=== PATIENT | male | born 1980 | race Caucasian/White ===

== ENCOUNTER → 2018-01-13 | Outpatient (CLI) | payer OTHER ==
--- NOTE | 2018-01-13 23:05 | MR ---
EXAMINATION TYPE: MR lumbar spine wo con DATE OF EXAM: 01/13/2018 COMPARISON: NONE HISTORY: Back pain with severe shooting pain down both legs since 1999 per patient. Lumbago with righ t-sided sciatica per order. TECHNIQUE: Multiplanar, multisequence imaging of the lumbar spine is performed without IV contrast. FINDINGS: Exam is noted suboptimal due to patient motion despite several reminders from MRI technolog ist. Sagittal images of the lumbar spine show vertebral body heights and alignment to appear satisfac tory. There is disc desiccation L4-L5 level otherwise the intervertebral discs demonstrate normal hei ghts and hydration. There is increased signal posteriorly consistent with annular tear L4-L5 level. T here is small posterior disc herniation at this level and at L5-S1 level on sagittal images. The conu s medullaris is normal in position and signal ending at superior L1 level. The bone marrow signal in tensity is within normal limits. No significant spurring is seen. Axial images show the T12-L1, L1-L2, L2-L3, and L3-L4 levels to appear within normal limits. Axial images at L4-L5 level show broad-based central disc protrusion the spinal canal is preserved an d bilateral neural foramina are patent. Axial images at L5-S1 level. Show suspected bilateral pars defects axial image 5 without significant spondylolisthesis. There is central disc protrusion or spinal canal is preserved. Bilateral neural fo ramina are felt patent. Mild to moderate bilateral facet arthropathy at this level is present. There is prominent of the paraspinal muscle bulk. No suspicious retroperitoneal findings are seen. 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 I suspect b ilateral pars defect L5 level without significant spondylolisthesis. Consider correlation and/or conf irmation with plain films and/or CT if necessary.
== END ==
LOC: RADMRIMAIN 10:33
PROVIDERS: ATTEND Physician Assistant
DX: M51.26 Other intervertebral disc displacement, lumbar region (principal); M46.97 Unspecified inflammatory spondylopathy, lumbosacral region
CPT/HCPCS: 72148